=== PATIENT | female | born 1960 | race Caucasian/White ===

== ENCOUNTER → 2019-04-25 08:45 | Outpatient (CLI) | payer OTHER, SELFPAY ==
--- NOTE | 2019-04-25 08:50 | VDLE_ITS ---
Reason For Study: Swelling RIGHT LEFT CFV is compressible, spontaneous, phasic, CFV is compressible, spontaneous, phasic, competent and demonstrates normal competent, and demonstrates normal augmentation. augmentation. FV is compressible, spontaneous, phasic, FV is compressible, spontaneous, phasic, competent and demonstrates normal competent and demonstrates normal augmentation. augmentation. POP V is compressible, spontaneous, phasic, POP V is compressible, spontaneous, phasic, competent and demonstrates normal competent and demonstrates normal augmentation. augmentation. T/P Trunk is compressible. T/P Trunk is compressible. PTV is compressible. PTV is compressible. RT PerV is compressible. LT PerV is compressible. SFJ is competent and measures 0.55 x 0.64 cm. Thrombus filled varicose veins noted in the GSV proximal thigh measures 0.37 x 0.37 cm. dital medial thigh. GSV at knee measures 0.24 x 0.26 cm. GSV is partially compressible at distal GSV is competent throughout. thigh. ASV mid thigh is INCOMPETENT for greater than SFJ is INCOMPETENT and measures 1.32 x 1.43 0.5 seconds and measures 0.34 x 0.34 cm. cm. INCOMPETENT nurse ldr noted 10 cm above GSV proximal thigh measures 0.93 x 0.96 cm. medial malleolus. GSV above knee is INCOMPETENT for greater SSV at junction is INCOMPETENT for greater than 0.5 seconds. than 0.5 seconds and measures 0.28 x 0.28 cm. GSV at knee measures 0.55 x 0.60 cm. Procedure GSV below knee is competent. Exam performed in department. ASV mid thigh is INCOMPETENT for greater than A preliminary report was called and/or faxed 0.5 seconds and measures 0.60 cm. to Arroyo. SSV at junction is competent and measures 0.25 x 0.30 cm. Interpretation Summary Deep veins of the lower extremities are bilaterally patent and compressible segmentally. There is no evidence of deep vein thrombosis on either side. Valvular competence appears intact within the proximal deep venous systems bilaterally. The right great saphenous vein appears patent and compressible segmentally. Acute superficial thrombophlebitis is noted in a short segment of the left great saphenous vein in the distal left thigh. The left great saphenous vein is otherwise patent and compressible. The right sapheno-femoral junction is competent . The left sapheno-femoral junction is incompetent . The right great saphenous vein appears segmentally competent. The left great saphenous vein appears incompetent above the knee. The left great saphenous vein appears competent below the knee. The right small saphenous vein is patent and incompetent. The left small saphenous vein is patent and competent. An incompetent accessory saphenous vein is noted in the mid-thigh bilaterally. An incompetent nurse ldr vein is noted in the right calf, located 10 centimeters proximal to the right medial malleolus. Acute superficial thrombophlebitis is noted involving superficial varicosities in the left distal, medial thigh. Ordering Physician: Godfrey Arroyo Referring Physician: Olga Gomes Performed By: Berenice Rich RVT
== END ==
PROVIDERS: Family Provider Internal Medicine; PCP Internal Medicine; Referring Provider Surgery; Visit Provider Surgery
DX: I80.02 Phlebitis and thrombophlebitis of superficial vessels of left lower extremity (principal); M79.89 Other specified soft tissue disorders; M79.609 Pain in unspecified limb
CPT/HCPCS: 93970

== ENCOUNTER 2022-06-08 13:25 | Emergency (ER) | payer OTHER, SELFPAY ==
[2022-06-08 13:26] VITALS: BP 190/85; PULSE 78; RESP 15; TEMP 36; O2SAT 96; BMI 49.8
--- NOTE | 2022-06-08 15:22 | EX.ED.DYSGE1 ---
HPI History of Present Illness Chief Complaint: Hypertension Informant: patient and spouse/S.O. Narrative Narrative: Patient had some numbness to the feelings at work. She just felt a little bit out of it. She had just a very very small headache. No focal neurologic deficit. No vertigo. No chest pain. No shortness of breath. Her blood pressure was checked and it was running 190s over 90s. She was referred in here for evaluation. She is feeling better now but her blood pressure is now down to about 174/85. Patient was just started on high blood pressure medicine 4 days ago. She was started on lisinopril. From her medical record it looks like she was started at a very low-dose of 2.5 mg of lisinopril. She is not sure of the dose. She is not sure if it also had hydrochlorothiazide. But the above doses what our nurse was able to get from online connection to her pharmacy. [facility] Medical History Diabetes GERD (gastroesophageal reflux disease) HLD (hyperlipidemia) HTN (hypertension) Hx of deep venous thrombosis Varicose vein of leg Home Medications aspirin 325 mg tablet 325 mg PO DAILY 06/08/22 [History Last Taken Unknown] atorvastatin 20 mg tablet 20 mg PO DAILY 06/08/22 [History Last Taken Unknown] cholecalciferol (vitamin D3) 125 mcg (5,000 unit) capsule 125 mcg PO BID 06/08/22 [History Last Taken Unknown] fluticasone propionate 50 mcg/actuation nasal spray,suspension 50 mcg intranasal DAILY 06/08/22 [History Last Taken Unknown] glucosamine sulfate 750 mg tablet 1,500 mg PO DAILY 06/08/22 [History Last Taken Unknown] lansoprazole 30 mg capsule,delayed release 30 mg PO DAILY 06/08/22 [History Last Taken Unknown] lisinopril 2.5 mg tablet 2.5 mg PO DAILY 06/08/22 [History Last Taken Unknown] metformin 500 mg tablet,extended release 24 hr 500 mg PO DAILY 06/08/22 [History Last Taken Unknown] omega-3 fatty acids-vitamin E 1,000 mg capsule 1 cap PO DAILY 06/08/22 [History Last Taken Unknown] potassium 99 mg tablet 99 mg PO DAILY 06/08/22 [History Last Taken Unknown] vitamin B6-vitamin E-magnesium tablet 1 tab PO DAILY 06/08/22 [History Last Taken Unknown] Allergy/AdvReac Type Severity Reaction Status Date / Time acetaminophen [From Percocet] Allergy Itching Verified 06/08/22 14:51 oxycodone [From Percocet] Allergy Itching Verified 06/08/22 14:51 Surgical History Hx of hernia repair Social History Smoking Status: Never smoker ROS ROS ED Constitutional Constitutional ED: Denies chills or fever(s) Eyes Eyes: Denies blurry vision, change in vision or diplopia ENT ENT ED: Denies sore throat Cardiovascular Cardiovascular: Denies chest pain or palpitations Respiratory/Chest Respiratory/Chest: Denies dyspnea Gastrointestinal Gastrointestinal: Denies nausea or vomiting Musculoskeletal Musculoskeletal: Denies myalgias Integumentary Denies rash Neurologic Neurologic: Reports headache(s); Denies paresthesias or weakness Psychiatric Psychiatric: Denies anxiety Hematologic/Lymphatic Hematologic/Lymphatic: Denies easy bleeding or easy bruising Allergic/Immunologic Allergic/Immunologic ED: Denies urticaria EXAM Physical Exam Narrative Exam Narrative: Patient awake alert no acute distress. She carries on normal conversation. HEENT shows no rash or sinus tenderness. Mucous membranes are moist. Exam shows normal pupillary function. Normal range of motion. Funduscopic exam shows no notable AV nicking. Neck shows no JVD. No stridor. Lungs are clear bilaterally. Heart is regular. There is no murmur gallop rub or audible dysrhythmia. I feel no abnormal pulses. Her pulses are normal x4. Abdomen is mildly obese but overall benign and nontender. No CVA tenderness. Extremities show no edema or tenderness or asymmetry. Neurologically the patient is awake alert and appropriate. Normal visual field. She has normal speech and understanding. No notable weakness or sensory changes. No discoordination. Const Vital Signs: 06/08/22 13:26 06/08/22 14:59 06/08/22 15:26 Temperature 96.8 F L Temperature Source Temporal Pulse Rate 78 Respiratory Rate 15 Respiratory Effort Normal Non-Labored Respiratory Pattern Normal Blood Pressure 190/85 H 179/86 H Blood Pressure Mean 120 117 Pulse Ox 96 Oxygen Delivery Method Room Air 06/08/22 16:49 Temperature Temperature Source Pulse Rate Respiratory Rate Respiratory Effort Respiratory Pattern Blood Pressure 140/81 H Blood Pressure Mean 100 Pulse Ox Oxygen Delivery Method MDM MDM MDM Narrative Medical decision making narrative: Patient's electrolytes including renal function are normal. Mildly high BUN to creatinine ratio. Her blood pressure is now 140/80. She is asymptomatic. She has gotten up to the bathroom without difficulties. I think we can get her home. I think that blood pressure can be managed as an outpatient. She never had chest pain or dyspnea. I do not think she requires EKG or blood work beyond what was done. I do not think she requires any x-ray or imaging of the head or chest. Lab Data Attestation: I reviewed the patient's lab results. Labs: Laboratory Results - last 24 hr 06/08/22 15:30 Sodium 142 Potassium 4.0 Chloride 106 Carbon Dioxide 30.0 Anion Gap 6 BUN 14 Creatinine 0.68 Estim Creat Clear Calc 151.72 Est GFR (MDRD) Af Amer 112 Est GFR (MDRD) Non-Af 93 BUN/Creatinine Ratio 20.6 H Glucose 103 Calcium 9.7 Discharge Plan Triage Chief Complaint: Hypertension ED Provider: Jose A Ron Dx/Rx/DC Orders Clinical Impression: Elevated blood pressure reading Instructions: ED High Blood Pressure Hypertension Prescriptions: No Action atorvastatin 20 mg tablet 20 mg PO DAILY Label Comments: TAKE 1 TABLET BY MOUTH ONCE DAILY IN THE EVENING aspirin 325 mg Tablet 325 mg PO DAILY potassium 99 mg Tablet 99 mg PO DAILY lansoprazole 30 mg Capsule,Delayed Release(Dr/Ec) 30 mg PO DAILY fluticasone propionate 50 mcg/actuation spray,suspension 50 mcg INTRANASAL DAILY metformin 500 mg tablet extended release 24 hr 500 mg PO DAILY Label Comments: TAKE 1 TABLET BY MOUTH ONCE DAILY IN THE EVENING lisinopril 2.5 mg tablet 2.5 mg PO DAILY cholecalciferol (vitamin D3) 125 mcg (5,000 unit) capsule 125 mcg PO BID Label Comments: TAKE 2 CAPSULES BY MOUTH ONCE DAILY Fish Oil 1,000 mg Capsule 1 cap PO DAILY glucosamine sulfate [Glucosamine] 750 mg Tablet 1,500 mg PO DAILY Rx Instructions: administer with a meal vitamin B6-vitamin E-magnesium Tablet 1 tab PO DAILY Primary Care Provider: Olga Gomes Referrals: Olga Gomes MD [Primary Care Provider] - 3-5 Days Disposition Disposition: Home, Self Care
[2022-06-08 15:26] VITALS: BP 179/86
[2022-06-08 16:00] LABS: Anion Gap 6 (5-15); BUN 14 mg/dL (7-18); BUN/Creat Ratio 20.6 RATIO (10-20); Calcium,Total 9.7 mg/dL (8.5-10.1); Chloride 106 mmol/L (98-107); Creatinine, Serum 0.68 mg/dL (0.55-1.02); EST Glomerular Filtration Rate 93 mL/min (>60); Est Glom Filt Rate - Afr Amer 112 mL/min (>60); Estimated Creatinine Clearance 151.72 ml/min; Glucose 103 mg/dL (74-106); Sodium Level 142 mmol/L (136-145)
[2022-06-08 16:49] VITALS: BP 140/81
[2022-06-08 16:59] VITALS: BP 140/81
== END 2022-06-08 17:00 | disposition home or self-care (01) ==
PROVIDERS: Emergency Provider Emergency Medicine; PCP Internal Medicine; Visit Provider Emergency Medicine
DX: I10 Essential (primary) hypertension (principal); E11.9 Type 2 diabetes mellitus without complications; E78.5 Hyperlipidemia, unspecified; Z79.82 Long term (current) use of aspirin; Z79.84 Long term (current) use of oral hypoglycemic drugs; Z79.899 Other long term (current) drug therapy
CPT/HCPCS: 80048; 99282